=== PATIENT | female | born 1960 | race Caucasian/White ===

== ENCOUNTER → 2017-01-07 | Day surgery (SDC) | payer OTHER ==
[~2017-01-07] VITALS: Ht 160 cm; Wt 66.7 kg
[~2017-01-07] MED LIST: 0.9% Sodium Chloride 1,000 ML IV SCH; ASCO-294 PO; CALC-964 PO; CETI5TAB28 PO; CHOL10008 PO; FLAX100038 PO; LACT1TAB25 PO; MELO-253 PO; MULT-666 PO; NORE-3 PO; Sodium Chloride LOK Flush 10 mL Syringe IV PRN; fentaNYL-PF 50 mCg/mL 2 mL Inj IVPUSH PRN
[2017-01-07 14:49] VITALS: BP 108/72; PULSE 71; RESP 12; O2SAT 100
[2017-01-07 15:50] VITALS: BP 99/59; PULSE 75; RESP 14; O2SAT 98
[2017-01-07 16:28] VITALS: BP 98/64; PULSE 64; O2SAT 100
--- NOTE | 2017-01-07 19:27 | ENDO ---
[address] [address] ENDOSCOPY PROCEDURE PATIENT: TESSIE LAKE : 1960 MR#: [id number] ADMIT: 01/07/2017 JOB ID: [id number] DATE OF SERVICE: 01/07/2017 TYPE OF OPERATION: Esophagogastroduodenoscopy, biopsy, and colonoscopy. PREOPERATIVE DIAGNOSIS(ES): Epigastric pain and colorectal cancer. POSTOPERATIVE DIAGNOSIS(ES): 1. Mild nonerosive gastritis, status post biopsy. 2. Normal colonoscopy. ANESTHESIA: Fentanyl 175 mcg and Versed 8 mg IV administered. COMPLICATIONS: None. BLOOD LOSS: Minimal. DESCRIPTION OF PROCEDURE: After the risks and benefits explained to the patient, informed consent was obtained. After anesthesia administered, an upper endoscope was inserted into the mouth, intubated into the esophagus, stomach, second portion of duodenum. Mucosa carefully examined. After procedure was done, the scope withdrawn, procedure terminated. Colonoscope was then inserted from the rectum to cecum. Mucosa carefully examined. Prep of the patient was fair. After the procedure was done, the scope was withdrawn, procedure terminated. FINDINGS: Upon inspection of the esophagus, esophagus is normal without masses, ulcers, or lesions. Z-line located at 40 cm from incisors. Upon entering the stomach, there was mild nonerosive gastritis that was seen. No masses, ulcers were seen. Retroflexion normal. Duodenal bulb, first and second portion normal. Biopsy taken of duodenum, antrum, body of stomach. Upon inspection of the anus, no masses, hemorrhoids, ulcers, fissures that were seen throughout the entire examination. There were no polyps, masses, or lesions. Retroflexion was normal. IMPRESSION: 1. Normal colonoscopy. 2. Mild nonerosive gastritis, status post biopsy. RECOMMENDATION: Await pathology results. Follow up with GI clinic as needed.
--- NOTE | 2017-01-17 14:43 | PATH ---
SURGICAL PATHOLOGY Attending Physician:Leo Chen MD CASE STATUS: Signed Out PATIENT NAME: TESSIE LAKE PID: [id number] : 1960 DATE COLLECTED:01/07/2017 00:00 SPECIMEN: 1: Duodenum, Biopsy 2: Stomach, Antrum, Biopsy 3: Gastric, Biopsy CLINICAL HISTORY: 1). DUODENAL BIOPSY 2). ANTRUM BIOPSY 3). GASTRIC BODY BIOPSY, RULE OUT H PYLORI FINAL DIAGNOSIS: 1. Duodenum, Biopsy: Duodenal mucosa with no diagnostic abnormality. Negative for active inflammation, features of sprue, dysplasia or malignancy. Additional step sections examined. 2-3. Antrum, Gastric Body, Biopsies: Gastric antral and body mucosa with mild chronic gastritis. Negative for Helicobacter organisms by immunohistochemistry in each part. Negative for intestinal metaplasia, dysplasia, and malignancy. ICD10: R10.13 NOTE: As part of routine rn quality, Dr. Torres reviewed Part 1 of this case and agrees with the above diagnosis. GROSS DESCRIPTION: The specimen is received in three formalin filled containers labeled with the patient's name. 1). The specimen is labeled "duod" and consists of 2 portions of tissue which aggregate to 0.2 x 0.2 x 0.2 CM. The specimen is entirely submitted in cassette 1A. 2). The specimen is labeled "body" is a 0.4 x 0.3 x 0.2 CM portion of tissue which is entirely submitted in cassette 2A. 3). The specimen is labeled "antrum" and consists of 2 portions of tissue which aggregate to 0.2 x 0.2 x 0.2 CM. The specimen is entirely submitted in cassette 3A. 01/10/2017DC MICRO DESCRIPTION: 2. 3. An immunohistochemical stain was performed on parts 2 and 3 to evaluate for Helicobacter organisms and is negative for both parts. A control stain showed appropriate reactivity. This test was developed and its performance characteristics determined by [facility]. It has not been cleared or approved by the [place]. Food and Drug Administration. The FDA has determined that such clearance or approval is not necessary. This test is used for clinical purposes. It should not be regarded as investigational or for research. ICD-9 CODES: CPT CODES: 1: 77517 2: 46442, 18228 3: 34315, 91249 Electronically Signed Out Rizwan Chacko MD, Ph.D. [facility] [address], [place] [address] Technical component performed at [facility], [facility] [address], [place], [address]
== END | disposition home or self-care (01) ==
LOC: END 00:51
PROVIDERS: ATTEND Internal Medicine Gastroenterology
DX: Z12.11 Encounter for screening for malignant neoplasm of colon (principal); K29.50 Unspecified chronic gastritis without bleeding; J45.909 Unspecified asthma, uncomplicated